=== PATIENT | male | born 1955 | race Hispanic/Latino ===

== ENCOUNTER 2017-06-10 08:28 | Day surgery (SDC) | payer BC ==
[~2017-06-10] VITALS: Ht 172.7 cm; Wt 105.5 kg
[~2017-06-10 08:28] MED LIST: SODIUM CHLORIDE 0.9% 1000ML 1,000 ML IV ONE
[2017-06-10 10:47] VITALS: BP 144/90
[2017-06-10] MEDS ORDERED: PROPOFOL 10 MG/ML 20ML VIAL IV ONE ×3 (11:53→11:55)
== END 2017-06-10 12:50 ==
LOC: DAH 08:28
PROVIDERS: ATTEND Internal Medicine Gastroenterology
DX: Z12.11 Encounter for screening for malignant neoplasm of colon (principal); K57.30 Diverticulosis of large intestine without perforation or abscess without bleeding; Z98.890 Other specified postprocedural states
CPT/HCPCS: 45378; A4606; J2704 ×3; J7030